=== PATIENT | female | born 1930 | race Caucasian/White ===

== ENCOUNTER 2017-07-01 15:40 | Observation (INO) | payer OTHER, MEDICARE ==
[~2017-07-01] VITALS: Ht 152.4 cm; Wt 66.6 kg
--- NOTE | 2017-07-01 16:08 | EMERGENCY ROOM VISIT NOTE ---
History Report prepared by Deonna: Helder Robbins Under the Supervision of: Dr. Dina Ridley D.O. First contact with patient: 15:57 Chief Complaint: HYPERTENSION Stated Complaint: HIGH BLOOD PRESSURE History of Present Illness The patient is an 86 year old female who presents to the Emergency Room with persistent hypertension that was detected prior to arrival today. She says that she was in Dr. Curtis's office for a routine checkup, and her blood pressure was noted to be 220/[address] Curtis told the patient to come here for evaluation. The patient says that she has a history of hypertension, and takes Lisinopril daily. In the room here, her blood pressure is 253/78. She says that she has been feeling well recently, and nothing out of the ordinary has happened. She denies any dizziness, headaches, chest pain, shortness of breath, worsened vision, or numbness or tingling. She also notes no change in her diet or activity recently. She says that she has no history of heart or kidney issues , or a stroke. Source of History: patient, family Onset: Detected prior to arrival today Position: other (global - hypertension) Symptom Intensity: 253/78 Timing: other (persistent) Associated Symptoms: No headache, No chest pain, No SOB, No numbness (or tingling) Note: Associated symptoms: Denies dizziness, worsened vision. Enloe fine past few days. Review of Systems See HPI for pertinent positives & negatives. A total of 10 systems reviewed and were otherwise negative. Past Medical & Surgical Medical Problems: (1) HTN (hypertension) (2) Hypertensive urgency Family History Family history omitted secondary to patient's advanced age. Social History Smoking Status: Former Smoker Marital Status: Housing Status: lives with family Occupation Status: retired Current/Historical Medications Scheduled Amlodipine (Norvasc), 2.5 MG PO DAILY Aspirin (Aspirin Ec), 81 MG PO DAILY Calcium (Calcium), 500 MG PO DAILY Carvedilol (Coreg), 12.5 MG PO BID Cholecalciferol (Vitamin D3), 2,000 INTER.UNIT PO DAILY Furosemide (Lasix), 20 MG PO DAILY Lisinopril (Zestril), 40 MG PO DAILY Potassium Gluconate (Potassium Gluconate), 1 TAB PO DAILY Ranitidine (Zantac), 150 MG PO HS Triamcinolone Acet (Aristocort 0.1%), 1 APPL TOP BID Scheduled PRN Acetaminophen (Tylenol Extra Strength), 1-2 TABS PO Q8 PRN for Pain Ibuprofen Tab (Advil), 200 MG PO DAILY PRN for Pain Allergies Coded Allergies: Flu Virus Vaccine (Unverified Allergy, Unknown, UNKNOWN, 07/01/17) Iodine (Unverified Allergy, Unknown, UNKNOWN, 07/01/17) Physical Exam Vital Signs Date Time Temp Pulse Resp B/P (MAP) Pulse Ox O2 Delivery O2 Flow Rate FiO2 07/01/17 20:16 53 19 127/57 99 Room Air 07/01/17 20:13 55 07/01/17 20:02 56 23 118/57 99 Room Air 07/01/17 19:46 59 24 119/55 98 Room Air 07/01/17 19:31 64 19 119/73 98 Room Air 07/01/17 19:16 58 24 159/58 98 Room Air 07/01/17 19:01 53 15 186/89 99 Room Air 07/01/17 18:45 54 22 217/79 98 Room Air 07/01/17 18:25 52 18 199/92 98 Room Air 07/01/17 16:46 45 18 259/87 98 Room Air 07/01/17 16:09 46 07/01/17 15:55 98 Room Air 07/01/17 15:42 36.5 52 16 247/79 98 Room Air Physical Exam GENERAL: alert, well appearing, well nourished, no distress, non-toxic EYE EXAM: normal conjunctiva, PERRL and EOM's grossly intact OROPHARYNX: no exudate, no erythema, lips, buccal mucosa, and tongue normal and mucous membranes are moist NECK: supple, no nuchal rigidity, no adenopathy, non-tender LUNGS: Clear to auscultation. Normal chest wall mechanics HEART: no murmurs, S1 normal and S2 normal ABDOMEN: abdomen soft, non-tender, normo-active bowel sounds, no masses, no rebound or guarding. BACK: Back is symmetrical on inspection and there is no deformity, no midline tenderness, no CVA tenderness. SKIN: no rashes and no bruising UPPER EXTREMITIES: upper extremities are grossly normal. LOWER EXTREMITIES: Trace pedal edema. NEURO EXAM: Normal sensorium, cranial nerves II-XII grossly intact, normal speech, no gross weakness of arms, no gross weakness of legs. Medical Decision & Procedures ER Provider Diagnostic Interpretation: X-ray results have been interpreted by the radiologist and reviewed by me. CHEST ONE VIEW PORTABLE HISTORY: 86 years-old Female hypertension COMPARISON: None available TECHNIQUE: Portable upright AP view of the chest FINDINGS: Cardiac silhouette is moderately enlarged. Atherosclerosis of the aorta. No pneumothorax, pleural effusion, focal airspace consolidation or overt pulmonary edema. Minimal ill-defined subsegmental opacities of the lateral lung bases suggest areas of atelectasis or scarring. The bones are grossly intact. IMPRESSION: Cardiomegaly without acute cardiopulmonary process. The above report was generated using voice recognition software. It may contain grammatical, syntax or spelling errors. Electronically signed by: Ruben Del Toro M.D. 07/01/2017 4:41 PM Dictated Date/Time: 07/01/2017 4:40 PM Laboratory Results 07/01/17 16:45 Red Blood Count 4.09, Mean Corpuscular Volume 94.6, Mean Corpuscular Hemoglobin 32.5, Mean Corpuscular Hemoglobin Concent 34.4, Mean Platelet Volume 11.5, Neutrophils (%) (Auto) 43.5, Lymphocytes (%) (Auto) 37.0, Monocytes (%) (Auto) 11.9, Eosinophils (%) (Auto) 6.7, Basophils (%) (Auto) 0.7, Neutrophils # (Auto ) 2.46, Lymphocytes # (Auto) 2.09, Monocytes # (Auto) 0.67, Eosinophils # (Auto ) 0.38, Basophils # (Auto) 0.04 Test 07/01/17 15:57 07/01/17 16:45 07/01/17 18:08 Troponin I 0.034 ng/ml (0-0.045) Pro-B-Type Natriuretic Peptide 1195 pg/ml (0-1800) Thyroid Stimulating Hormone (TSH) 3.500 uIu/ml (0.300-4.500) White Blood Count 5.65 K/uL (4.8-10.8) Red Blood Count 4.09 M/uL (4.2-5.4) Hemoglobin 13.3 g/dL (12.0-16.0) Hematocrit 38.7 % (37-47) Mean Corpuscular Volume 94.6 fL (80-100) Mean Corpuscular Hemoglobin 32.5 pg (25-34) Mean Corpuscular Hemoglobin Concent 34.4 g/dl (32-36) Platelet Count 142 K/uL (130-400) Mean Platelet Volume 11.5 fL (7.4-10.4) Neutrophils (%) (Auto) 43.5 % Lymphocytes (%) (Auto) 37.0 % Monocytes (%) (Auto) 11.9 % Eosinophils (%) (Auto) 6.7 % Basophils (%) (Auto) 0.7 % Neutrophils # (Auto) 2.46 K/uL (1.4-6.5) Lymphocytes # (Auto) 2.09 K/uL (1.2-3.4) Monocytes # (Auto) 0.67 K/uL (0.11-0.59) Eosinophils # (Auto) 0.38 K/uL (0-0.5) Basophils # (Auto) 0.04 K/uL (0-0.2) RDW Standard Deviation 45.9 fL (36.4-46.3) RDW Coefficient of Variation 13.2 % (11.5-14.5) Immature Granulocyte % (Auto) 0.2 % Immature Granulocyte # (Auto) 0.01 K/uL (0.00-0.02) Urine Color YELLOW Urine Appearance CLEAR (CLEAR) Urine pH 7.0 (4.5-7.5) Urine Specific [place] 1.012 (1.000-1.030) Urine Protein NEG (NEG) Urine Glucose (UA) NEG (NEG) Urine Ketones NEG (NEG) Urine Occult Blood TRACE (NEG) Urine Nitrite NEG (NEG) Urine Bilirubin NEG (NEG) Urine Urobilinogen NEG (NEG) Urine Leukocyte Esterase MODERATE (NEG) Urine WBC (Auto) 10-30 /hpf (0-5) Urine RBC (Auto) 0-4 /hpf (0-4) Urine Hyaline Casts (Auto) 0 /lpf (0-5) Urine Epithelial Cells (Auto) 10-20 /lpf (0-5) Urine Bacteria (Auto) 2+ (NEG) Magnesium Level 2.3 mg/dl (1.8-2.4) Date/Time Source Procedure Growth Status 07/01/17 16:45 Urine , Clean Catch Urine Culture - Final Escherichia Coli Complete Laboratory results per my review. Medications Administered Medications (Trade) Dose Ordered Sig/Keysha Route Start Time Stop Time Status Last Admin Dose Admin Amlodipine Besylate (Norvasc Tab) 5 mg NOW ONCE PO 07/01/17 17:00 07/01/17 17:01 DC 07/01/17 17:17 5 MG Hydralazine HCl (HydrALAZINE INJ) 5 mg NOW STAT IV. 07/01/17 18:06 07/01/17 18:20 DC 07/01/17 18:25 5 MG Hydralazine HCl (HydrALAZINE INJ) 10 mg NOW STAT IV. 07/01/17 18:50 07/01/17 18:51 DC 07/01/17 19:01 10 MG Ceftriaxone Sodium (Rocephin Inj) 1 gm NOW STAT IV 07/01/17 18:56 07/01/17 18:57 DC 07/01/17 19:01 1 GM ECG Indication: other (hypertension) Rate (beats per minute): 52 Rhythm: sinus bradycardia Findings: no acute ischemic change, no ectopy, other (normal axis, normal intervals) Comparison ECG Date: no prior available ED Course 1558: The patient was evaluated in room C4. A complete history and physical exam was performed. 1615: Case management was able to obtain medical records from Dr. Curtis's office. The patient's elevated blood pressure in office was confirmed. The medication list from the office is different from the one the patient presents today. 1641: I reevaluated the patient, and reviewed the PCP medication list with the patient. 1700: Ordered Norvasc Tab 5 mg PO. 1806: Ordered Hydralazine Inj 5 mg IV. 1845: Upon reevaluation, the patient is feeling fine with no symptoms, but her systolic blood pressure was 217. I discussed the findings and the treatment plan with the patient. She expresses agreement and understanding. She will be evaluated for further management. 1850: Ordered Hydralazine Inj 10 mg IV. 1856: Ordered Rocephin Inj 1 gm IV. 1925: I reviewed the patient's case with Samanta Jean. She will evaluate the patient for further management. Medical Decision Differential diagnosis: Etiologies such as benign hypertension, hypertensive emergency, cardiovascular pathology, pheochromocytoma, electrolyte abnormality, renal disease, endorgan damage, as well as others were entertained. Pt with hx of htn and asymptomatic here. Sent in due to accelerated htn given readings in the office. No improvement here and pt denied missing any doses or any changes. Per conversation, pt not entirely adherent to a heart healthy diet. After two doses of meds here, pt SBP finally less than 200. No evidence of end organ damage. No neuro findings to suggest ich/cva. Doubt dissection, acs, chf. Pt admitted for additional BP control. Medication Reconcilliation Current Medication List: was personally reviewed by me Blood Pressure Screening Patient's blood pressure: Elevated blood pressure Referred to hospitalist. Consults Time Called: 1909 Consulting Physician: Samanta Jean Returned Call: 1924 I reviewed the patient's case with Samanta Jean. She will evaluate the patient for further management. Impression Primary Impression: Uncontrolled hypertension Scribe Attestation The scribe's documentation has been prepared under my direction and personally reviewed by me in its entirety. I confirm that the note above accurately reflects all work, treatment, procedures, and medical decision making performed by me. Departure Information Dispostion Being Evaluated By Hospitalist Prescriptions Acetaminophen (Tylenol Extra Strength) 500 Mg Tab 1-2 TABS PO Q8 Y for Pain, #1 BTL No prescription necessary. Try before ibuprofen (Advil). Prov: Ab Good M.D. 07/02/17 Amlodipine (Norvasc) 2.5 Mg Tab 2.5 MG PO DAILY, #30 TAB 5 Refills Prov: Ab Good M.D. 07/02/17 Referrals No Doctor, Assigned (PCP) Patient Instructions My [facility]
[2017-07-01] MEDS ORDERED: ASPI81TA28 PO (16:34)
[2017-07-01] MEDS ORDERED: CALC500T83 PO (16:34)
[2017-07-01] MEDS ORDERED: CHOL2000 PO (16:34)
--- NOTE | 2017-07-01 16:42 | DIAGNOSTIC IMAGING REPORT ---
CHEST ONE VIEW PORTABLE HISTORY: 86 years-old Female hypertension COMPARISON: None available TECHNIQUE: Portable upright AP view of the chest FINDINGS: Cardiac silhouette is moderately enlarged. Atherosclerosis of the aorta. No pneumothorax, pleural effusion, focal airspace consolidation or overt pulmonary edema. Minimal ill-defined subsegmental opacities of the lateral lung bases suggest areas of atelectasis or scarring. The bones are grossly intact. IMPRESSION: Cardiomegaly without acute cardiopulmonary process. The above report was generated using voice recognition software. It may contain grammatical, syntax or spelling errors. Electronically signed by: Ruben Del Toro M.D. 07/01/2017 4:41 PM Dictated Date/Time: 07/01/2017 4:40 PM
[2017-07-01] MEDS ORDERED: CARV12.52 PO (16:55)
[2017-07-01] MEDS ORDERED: LISI40TA PO (16:55)
[2017-07-01 16:56] LABS: BASO % 0.7 %; BASO ABS # 0.04 K/uL (0-0.2); COMPLETE YES; EOS % 6.7 %; HEMATOCRIT 38.7 % (37-47); IG% 0.2 %; LYMPH ABS # 2.09 K/uL (1.2-3.4); MEAN CELL VOLUME 94.6 fL (80-100); MEAN CORPUSCULAR HEMOGLOBIN 32.5 pg (25-34); MEAN CORPUSCULAR HGB CONC 34.4 g/dl (32-36); MEAN PLATELET VOLUME 11.5 fL (7.4-10.4); MONO % 11.9 %; NEUT % 43.5 %; PLATELET COUNT 142 K/uL (130-400); RED BLOOD COUNT 4.09 M/uL (4.2-5.4); WHITE BLOOD COUNT 5.65 K/uL (4.8-10.8)
[2017-07-01 16:58] LABS: MANUAL MICROSCOPIC REQUIRED? NO; REVIEW REQ? NO; URINE APPEARANCE CLEAR (CLEAR); URINE BILIRUBIN NEG (NEG); URINE COLOR YELLOW; URINE NITRITE NEG (NEG); URINE SPECIFIC GRAVITY 1.012 (1.000-1.030); UROBILINOGEN NEG (NEG); ZZUR CULT IF INDIC CLEAN CATCH YES
[2017-07-01] MEDS ORDERED: AMLODIPINE BESYLATE 5 MG TAB PO ONE (17:00)
[2017-07-01 17:17] LABS: ALB/GLOB RATIO 0.9 (0.9-2); ALKALINE PHOSPHATASE 128 U/L (45-117); ALT/SGPT 64 U/L (12-78); BLOOD UREA NITROGEN 9 mg/dl (7-18); BUN/CREATININE RATIO 12.2 (10-20); CALCIUM 9.1 mg/dl (8.5-10.1); CARBON DIOXIDE 27 mmol/L (21-32); CHLORIDE 106 mmol/L (98-107); CREATININE 0.74 mg/dl (0.60-1.20); GLUCOSE 93 mg/dl (70-99); SODIUM 140 mmol/L (136-145)
[2017-07-01] MEDS ORDERED: HydrALAZINE HCL 20 MG/ML VIAL IV. STA ×2 (18:06→18:50)
[2017-07-01 18:54] LABS: POTASSIUM 3.5 mmol/L (3.5-5.1)
[2017-07-01] MEDS ORDERED: CEFTRIAXONE SOD INJ 1 GM ADDVIAL IV STA (18:56)
[2017-07-01 19:00] LABS: MAGNESIUM 2.3 mg/dl (1.8-2.4)
[2017-07-01 21:45] VITALS: BP 162/67; PULSE 58; TEMP 36.4; O2SAT 97
--- NOTE | 2017-07-01 21:47 | History and Physical ---
History & Physical Date & Time of Service: Jul 01, 2017 at 21:47 Chief Complaint: Hypertensive Urgency Primary Care Physician: Clara Curtis M.D. (MEDICAL) History of Present Illness Source: patient, family, clinic records, hospital records 86 year old female with PMH of HTN, dyslipidemia, diastolic heart failure was sent to the Emergency Room with persistent hypertension. Pt was at her PCP office today for routine check up. BP at the office was 220/80. Dr. Curtis her PCP sent her to the ER for eval. Pt lives alone and very active. Her 2 daughters at bedside. one of the daughter said that she usually goes to pt place to check the BP., and BP has been running consistent in the 180 systolic as per daughter for the last few months. Pt said that she has been taking her BP meds daily and she has been watching her salt intake. she said that she has been feeling fine. In the ER BP was 253/78. She denies any dizziness, headaches , chest pain, shortness of breath, palpitation, worsened vision, numbness or tingling. Denies any urinary symptoms. Received Hydralazine 15 mg IV and Norvasc 5 mg and rocephin in the ER. Currently her BP 119/55. Past Medical/Surgical History Medical Problems: (1) HTN (hypertension) Status: Chronic Social History Smoking Status: Former Smoker Marital Status: Occupational Status: retired Multi-Drug Resistant Organisms History of MDRO: No Allergies Coded Allergies: Flu Virus Vaccine (Unverified Allergy, Unknown, UNKNOWN, 07/01/17) Iodine (Unverified Allergy, Unknown, UNKNOWN, 07/01/17) Home Medications Scheduled Aspirin (Aspirin Ec), 81 MG PO DAILY Calcium (Calcium), 500 MG PO DAILY Carvedilol (Coreg), 12.5 MG PO BID Cholecalciferol (Vitamin D3), 2,000 INTER.UNIT PO DAILY Furosemide (Lasix), 20 MG PO DAILY Lisinopril (Zestril), 40 MG PO DAILY Potassium Gluconate (Potassium Gluconate), 1 TAB PO DAILY Ranitidine (Zantac), 150 MG PO HS Triamcinolone Acet (Aristocort 0.1%), 1 APPL TOP BID Miscellaneous Medications Ibuprofen Tab (Advil), 200 MG PO Review of Systems Constitutional: No fever, No chills, No weakness Eyes: No worsening of vision, No eye pain ENT: No unusual epistaxis, No sore throat Respiratory: No cough, No sputum, No shortness of breath, No dyspnea on exertion Cardiovascular: No chest pain, No claudication, No palpitations Abdomen: No pain, No nausea, No vomiting Musculoskeletal: No swelling, No calf pain Genitourinary - Female: No dysuria, No urinary frequency Neurologic: No memory loss, No paralysis, No weakness Psychiatric: No anxiety, No substance abuse Hematologic / Lymphatic: No abnormal bleeding/bruising Integumentary: No rash, No itch Physical Exam Vital Signs Date Time Temp Pulse Resp B/P (MAP) Pulse Ox O2 Delivery O2 Flow Rate FiO2 07/01/17 21:45 36.4 58 20 162/67 (98) 97 Room Air 07/01/17 21:13 55 24 126/48 99 07/01/17 21:02 55 24 126/48 99 Room Air 07/01/17 20:39 53 22 104/62 98 Room Air 07/01/17 20:16 53 19 127/57 99 Room Air 07/01/17 20:13 55 07/01/17 20:02 56 23 118/57 99 Room Air 07/01/17 19:46 59 24 119/55 98 Room Air 07/01/17 19:31 64 19 119/73 98 Room Air 07/01/17 19:16 58 24 159/58 98 Room Air 07/01/17 19:01 53 15 186/89 99 Room Air 07/01/17 18:45 54 22 217/79 98 Room Air 07/01/17 18:25 52 18 199/92 98 Room Air 07/01/17 16:46 45 18 259/87 98 Room Air 07/01/17 16:09 46 07/01/17 15:55 98 Room Air 07/01/17 15:42 36.5 52 16 247/79 98 Room Air General Appearance: WD/WN, no apparent distress Head: normocephalic, atraumatic Eyes: normal inspection, PERRL, EOMI ENT: hearing grossly normal Neck: supple, no JVD, trachea midline Respiratory/Chest: lungs clear, normal breath sounds, no respiratory distress, no accessory muscle use Cardiovascular: no JVD, + bradycardia Abdomen/GI: normal bowel sounds, soft Back: no CVA tenderness Extremities/Musculoskelatal: no calf tenderness Neurologic/Psych: no motor/sensory deficits, alert, normal mood/affect, oriented x 3 Skin: normal color, warm/dry Diagnostics Laboratory Results Results Past 24 Hours Test 07/01/17 15:57 07/01/17 16:45 07/01/17 18:08 Range/Units Sodium Level 140 136-145 mmol/L Potassium Level 3.5 3.5-5.1 mmol/L Chloride Level 106 98-107 mmol/L Carbon Dioxide Level 27 21-32 mmol/L Anion Gap 7.0 3-11 mmol/L Blood Urea Nitrogen 9 7-18 mg/dl Creatinine 0.74 0.60-1.20 mg/dl Est Creatinine Clear Calc Drug Dose 46.9 ml/min Estimated GFR () 85.6 Estimated GFR (Non- 73.9 BUN/Creatinine Ratio 12.2 10-20 Random Glucose 93 70-99 mg/dl Calcium Level 9.1 8.5-10.1 mg/dl Magnesium Level 2.3 1.8-2.4 mg/dl Total Bilirubin 0.5 0.2-1 mg/dl Aspartate Amino Transf (AST/SGOT) 70 15-37 U/L Alanine Aminotransferase (ALT/SGPT) 64 12-78 U/L Alkaline Phosphatase 128 45-117 U/L Troponin I 0.034 0-0.045 ng/ml Pro-B-Type Natriuretic Peptide 1195 0-1800 pg/ml Total Protein 8.0 6.4-8.2 gm/dl Albumin 3.7 3.4-5.0 gm/dl Globulin 4.3 2.5-4.0 gm/dl Albumin/Globulin Ratio 0.9 0.9-2 Thyroid Stimulating Hormone (TSH) 3.500 0.300-4.500 uIu/ml White Blood Count 5.65 4.8-10.8 K/uL Red Blood Count 4.09 4.2-5.4 M/uL Hemoglobin 13.3 12.0-16.0 g/dL Hematocrit 38.7 37-47 % Mean Corpuscular Volume 94.6 80-100 fL Mean Corpuscular Hemoglobin 32.5 25-34 pg Mean Corpuscular Hemoglobin Concent 34.4 32-36 g/dl Platelet Count 142 130-400 K/uL Mean Platelet Volume 11.5 7.4-10.4 fL Neutrophils (%) (Auto) 43.5 % Lymphocytes (%) (Auto) 37.0 % Monocytes (%) (Auto) 11.9 % Eosinophils (%) (Auto) 6.7 % Basophils (%) (Auto) 0.7 % Neutrophils # (Auto) 2.46 1.4-6.5 K/uL Lymphocytes # (Auto) 2.09 1.2-3.4 K/uL Monocytes # (Auto) 0.67 0.11-0.59 K/uL Eosinophils # (Auto) 0.38 0-0.5 K/uL Basophils # (Auto) 0.04 0-0.2 K/uL RDW Standard Deviation 45.9 36.4-46.3 fL RDW Coefficient of Variation 13.2 11.5-14.5 % Immature Granulocyte % (Auto) 0.2 % Immature Granulocyte # (Auto) 0.01 0.00-0.02 K/uL Urine Color YELLOW Urine Appearance CLEAR CLEAR Urine pH 7.0 4.5-7.5 Urine Specific [place] 1.012 1.000-1.030 Urine Protein NEG NEG Urine Glucose (UA) NEG NEG Urine Ketones NEG NEG Urine Occult Blood TRACE NEG Urine Nitrite NEG NEG Urine Bilirubin NEG NEG Urine Urobilinogen NEG NEG Urine Leukocyte Esterase MODERATE NEG Urine WBC (Auto) 10-30 0-5 /hpf Urine RBC (Auto) 0-4 0-4 /hpf Urine Hyaline Casts (Auto) 0 0-5 /lpf Urine Epithelial Cells (Auto) 10-20 0-5 /lpf Urine Bacteria (Auto) 2+ NEG Microbiology Results 07/01/17 Urine Culture, Received Pending Diagnostic Radiology CHEST ONE VIEW PORTABLE HISTORY: 86 years-old Female hypertension COMPARISON: None available TECHNIQUE: Portable upright AP view of the chest FINDINGS: Cardiac silhouette is moderately enlarged. Atherosclerosis of the aorta. No pneumothorax, pleural effusion, focal airspace consolidation or overt pulmonary edema. Minimal ill-defined subsegmental opacities of the lateral lung bases suggest areas of atelectasis or scarring. The bones are grossly intact. IMPRESSION: Cardiomegaly without acute cardiopulmonary process. The above report was generated using voice recognition software. It may contain grammatical, syntax or spelling errors. Electronically signed by: Ruben Del Toro M.D. 07/01/2017 4:41 PM Dictated Date/Time: 07/01/2017 4:40 PM Impression Assessment and Plan Hypertensive Urgency BP on admission was 247/79 Received [id number] mg IV and Norvasc 5 mg in the ER BP improved Continue lisinorpril 40mg daily and lasix 20mg daily will add amlodine 5 mg daily On cavedilol 12.5 mg BID will monitor HR Continue monitor BP continue monitor in telemetry Abnormal UA urine positive for leukocytes and bacteria Asymptomatic, afebrile, no leukocytosis Received Rocephin 1g urine cx pending will continue rocephin for now and d/c if urine cx shows no growth Diastolic Heart failure No signs of overload CXR showed Cardiomegaly without acute cardiopulmonary process. Continue lasix 20mg and coreg DVT px on heparin subq CODE STATUS FULL CODE Level of Care Telemetry Resuscitation Status FULL RESUSCITATION VTE Prophylaxis VTE Risk Assessment Done? Y/N: Yes Risk Level: Moderate Given or contraindicated: Unfractionated heparin SQ
[2017-07-01 21:58] VITALS: BP 162/67; PULSE 58; TEMP 36.4; Ht 152.4 cm; Wt 66.6 kg
[2017-07-01] MEDS ORDERED: PNEUMOCOCCAL POLYSACCHARIDES 25 MCG/0.5 ML VIAL/SYR IM. ONE (22:30)
[2017-07-01] MEDS ORDERED: PNEUMOCOCCAL ADMINISTRATION CHARGE ONE (22:30)
[2017-07-02] VITALS (8 sets, daily range): BP systolic 150–191; BP diastolic 63–77; PULSE 56–64; TEMP 36.8; O2SAT 94–98
[2017-07-02] MEDS ORDERED: FURO-85 PO (00:07)
[2017-07-02] MEDS ORDERED: POTA1TAB PO (00:07)
[2017-07-02] MEDS ORDERED: TRMCR130WC TOP (00:07)
[2017-07-02] MEDS ORDERED: ZNTT/150 PO (00:07)
[2017-07-02] MEDS ORDERED: IBUP-103 PO (00:07)
[2017-07-02] MEDS ORDERED: HydrALAZINE HCL 20 MG/ML VIAL IV. PRN (00:15)
[2017-07-02 06:42] LABS: INR 1.1 (0.9-1.1); PROTHROMBIN TIME (PATIENT) 11.7 SECONDS (9.0-12.0)
[2017-07-02 07:01] LABS: CALCIUM 8.3 mg/dl (8.5-10.1); CREATININE 0.61 mg/dl (0.60-1.20); POTASSIUM 3.5 mmol/L (3.5-5.1)
[2017-07-02 07:04] LABS: ALB/GLOB RATIO 0.8 (0.9-2)
[2017-07-02] MEDS ORDERED: CARVEDILOL 12.5 MG TAB PO SCH (09:00)
[2017-07-02] MEDS ORDERED: FUROSEMIDE 20 MG TAB PO SCH (09:00)
[2017-07-02] MEDS ORDERED: CHOLECALCIFEROL 1000 INTER.UNIT TAB PO SCH (09:00)
[2017-07-02] MEDS ORDERED: HEPARIN SOD 5000 UNIT/0.5 ML CARP SQ SCH (09:00)
[2017-07-02] MEDS ORDERED: LISINOPRIL 40 MG TAB PO SCH (09:00)
[2017-07-02] MEDS ORDERED: ASPIRIN 81 MG ECTAB PO SCH (09:00)
[2017-07-02] MEDS ORDERED: CALCIUM 600MG + VIT D 400 IU TAB PO SCH (09:00)
[2017-07-02] MEDS ORDERED: AMLODIPINE BESYLATE 5 MG TAB PO SCH (09:00)
[2017-07-02] MEDS ORDERED: AMLO2.5T PO (15:46)
[2017-07-02] MEDS ORDERED: ACET-1138 PO (15:46)
--- NOTE | 2017-07-02 15:52 | Discharge Instructions ---
Discharge Instructions Date of Service Jul 02, 2017. Admission Reason for Admission: high blood pressure . Discharge Discharge Diagnosis / Problem: high blood pressure Discharge Goals Goal(s): Improve disease control Activity Recommendations Activity Limitations: resume your previous activity . Instructions / Follow-Up Instructions / Follow-Up APPOINTMENTS: FAMILY MEDICINE 07/05/2017 2:20 PM Clara Curtis MD OTHER INSTRUCTIONS: Your blood pressure was running high, but improved. Continue your usual blood pressure medicines. New blood pressure medicine: amlodipine (Norvasc) 2.5 mg each morning. Ibuprofen (Advil) can increase your blood pressure. Try not to take it more than once a day, and only if necessary. Acetaminophen (Extra Strength Tylenol) will not affect your blood pressure. May take 1 or 2 pills every 8 hours as needed for arthritis pain. You had some bacteria in your urine, but it does not seem like you have a bladder or kidney infection. No need for antibiotics at this time. Seek medical attention if you have: * temperature above 101 * chest pain or trouble breathing * abdominal pain, nausea, vomiting * diarrhea, dark stools or bloody stools * burning when you urinate or blood in your urine * any unanswered questions or concerns Call 911 if symptoms are severe. Call if you have any questions or problems. My cell # is [phone]. You can also reach a [facility] hospitalist on duty at [facility] 24 hours a day by calling [phone]. Please take good care of yourself. Ab Good . Current Hospital Diet Patient's current hospital diet: AHA Diet (Heart Healthy), Low Sodium Diet (2gm Na) Discharge Diet Recommended Diet: AHA Diet (Heart Healthy) Pending Studies Studies pending at discharge: no Medical Emergencies . Who to Call and When: Medical Emergencies: If at any time you feel your situation is an emergency, please call 911 immediately. . Non-Emergent Contact Non-Emergency issues call your: Primary Care Provider, Hospital Doctor . . "Provider Documentation" section prepared by Ab Good. . VTE Core Measure Inpt VTE Proph given/why not?: Unfractionated heparin SQ
[2017-07-02] MEDS ORDERED: CEFTRIAXONE SOD INJ 1 GM in DEXTROSE 5% ADD-VANTAGE 50ML 50 ML IV SCH (18:00)
--- NOTE | 2017-07-02 19:29 | Progress Note ---
Medicine Progress Note Date & Time of Visit: Jul 02, 2017 at ~ 15:30 . Subjective Feels well. No CP. No SOB. No N/V. No headache. . Objective Last 8 Hrs Date Time Temp Pulse Resp B/P (MAP) Pulse Ox O2 Delivery O2 Flow Rate FiO2 07/02/17 15:57 36.8 64 18 95 Room Air 07/02/17 15:52 64 18 191/68 (109) 95 Room Air 07/02/17 12:48 58 150/77 (101) 07/02/17 12:00 95 Room Air 07/02/17 11:40 36.8 56 17 176/70 (105) 94 Room Air Physical Exam: General- no distress Neck- no JVD Lungs- clear Heart- RRR, S4 Abdomen- + BS, soft, nontender Extremities- no pretibial edema or calf tenderness Neuro- alert . Laboratory Results: Last 24 Hours Test 07/02/17 05:56 Prothrombin Time 11.7 SECONDS Prothromb Time International Ratio 1.1 Sodium Level 139 mmol/L Potassium Level 3.5 mmol/L Chloride Level 108 mmol/L Carbon Dioxide Level 24 mmol/L Anion Gap 7.0 mmol/L Blood Urea Nitrogen 12 mg/dl Creatinine 0.61 mg/dl Est Creatinine Clear Calc Drug Dose 57.4 ml/min Estimated GFR () 95.8 Estimated GFR (Non- 82.7 BUN/Creatinine Ratio 19.0 Random Glucose 92 mg/dl Calcium Level 8.3 mg/dl Total Bilirubin 0.5 mg/dl Aspartate Amino Transf (AST/SGOT) 59 U/L Alanine Aminotransferase (ALT/SGPT) 51 U/L Alkaline Phosphatase 103 U/L Total Protein 6.9 gm/dl Albumin 3.1 gm/dl Globulin 3.8 gm/dl Albumin/Globulin Ratio 0.8 Assessment & Plan HYPERTENSIVE URGENCY Labile hypertension. Systolic BP as high as 217. Carvedilol and lisinopril continued. Amlodipine 2.5 mg daily added to regimen with improvement. Advised to avoid NSAID's if possible. Follow and titrate Rx. VTE PROPHYLAXIS SQ heparin. DISPOSITION Expected discharge to home. Family Medicine follow-up with Dr. Curtis. .
--- NOTE | 2017-07-02 19:30 | Discharge Summary ---
Discharge Summary Date of Service Jul 02, 2017. Discharge Summary Admission Date: Jul 01, 2017 at 20:34 Discharge Date: Jul 02, 2017 Discharge Disposition: Home Principal Diagnosis: hypertensive urgency . Secondary Diagnoses/Problems: Chronic Medical Problems: (1) HTN (hypertension) Status: Chronic . Medication Reconciliation New Medications: Acetaminophen (Tylenol Extra Strength) 500 Mg Tab 1-2 TABS PO Q8 PRN for Pain, #1 BTL No prescription necessary. Try before ibuprofen (Advil). Amlodipine (Norvasc) 2.5 Mg Tab 2.5 MG PO DAILY, #30 TAB 5 Refills Continued Medications: Aspirin (Aspirin Ec) 81 Mg Tab 81 MG PO DAILY Calcium (Calcium) 500 Mg Tab 500 MG PO DAILY Carvedilol (Coreg) 12.5 Mg Tab 12.5 MG PO BID, TAB Cholecalciferol (Vitamin D3) 2,000 Unit Cap 2000 INTER.UNIT PO DAILY, CAP 3 Refills Furosemide (Lasix) 20 Mg Tab 20 MG PO DAILY, TAB Ibuprofen Tab (Advil) 200 Mg Tab 200 MG PO DAILY PRN for Pain, TAB Lisinopril (Zestril) 40 Mg Tab 40 MG PO DAILY, TAB Potassium Gluconate (Potassium Gluconate) 595 Mg Tab 1 TAB PO DAILY Ranitidine (Zantac) 150 Mg Tab 150 MG PO HS, TAB Triamcinolone Acet (Aristocort 0.1%) 90 Appln/30 Gm Cr 1 APPL TOP BID Admission Information HPI (per Admitting provider): 86 year old female with PMH of HTN, dyslipidemia, diastolic heart failure was sent to the Emergency Room with persistent hypertension. Pt was at her PCP office today for routine check up. BP at the office was 220/80. Dr. Curtis her PCP sent her to the ER for eval. Pt lives alone and very active. Her 2 daughters at bedside. one of the daughter said that she usually goes to pt place to check the BP., and BP has been running consistent in the 180 systolic as per daughter for the last few months. Pt said that she has been taking her BP meds daily and she has been watching her salt intake. she said that she has been feeling fine. In the ER BP was 253/78. She denies any dizziness, headaches , chest pain, shortness of breath, palpitation, worsened vision, numbness or tingling. Denies any urinary symptoms. Received Hydralazine 15 mg IV and Norvasc 5 mg and rocephin in the ER. Currently her BP 119/55. Physical Exam (per Admitting): General Appearance: WD/WN, no apparent distress Head: normocephalic, atraumatic Eyes: normal inspection, PERRL, EOMI ENT: hearing grossly normal Neck: supple, no JVD, trachea midline Respiratory/Chest: lungs clear, normal breath sounds, no respiratory distress, no accessory muscle use Cardiovascular: no JVD, + bradycardia Abdomen/GI: normal bowel sounds, soft Back: no CVA tenderness Extremities/Musculoskelatal: no calf tenderness Neurologic/Psych: no motor/sensory deficits, alert, normal mood/affect, oriented x 3 Skin: normal color, warm/dry Hospital Course HYPERTENSIVE URGENCY Labile hypertension. Systolic BP as high as 217. Carvedilol and lisinopril continued. Amlodipine 2.5 mg daily added to regimen with improvement. Advised to avoid NSAID's if possible. Follow and titrate Rx. VTE PROPHYLAXIS SQ heparin. DISPOSITION Expected discharge to home. Family Medicine follow-up with Dr. Curtis. . Discharge Instructions Date of Service Jul 02, 2017. Admission Reason for Admission: high blood pressure . Discharge Discharge Diagnosis / Problem: high blood pressure Discharge Goals Goal(s): Improve disease control Activity Recommendations Activity Limitations: resume your previous activity . Instructions / Follow-Up Instructions / Follow-Up APPOINTMENTS: FAMILY MEDICINE 07/05/2017 2:20 PM Clara Curtis MD OTHER INSTRUCTIONS: Your blood pressure was running high, but improved. Continue your usual blood pressure medicines. New blood pressure medicine: amlodipine (Norvasc) 2.5 mg each morning. Ibuprofen (Advil) can increase your blood pressure. Try not to take it more than once a day, and only if necessary. Acetaminophen (Extra Strength Tylenol) will not affect your blood pressure. May take 1 or 2 pills every 8 hours as needed for arthritis pain. You had some bacteria in your urine, but it does not seem like you have a bladder or kidney infection. No need for antibiotics at this time. Seek medical attention if you have: * temperature above 101 * chest pain or trouble breathing * abdominal pain, nausea, vomiting * diarrhea, dark stools or bloody stools * burning when you urinate or blood in your urine * any unanswered questions or concerns Call 911 if symptoms are severe. Call if you have any questions or problems. My cell # is [phone]. You can also reach a [facility] hospitalist on duty at [facility] 24 hours a day by calling [phone]. Please take good care of yourself. Ab Good . Current Hospital Diet Patient's current hospital diet: AHA Diet (Heart Healthy), Low Sodium Diet (2gm Na) Discharge Diet Recommended Diet: AHA Diet (Heart Healthy) Pending Studies Studies pending at discharge: no Medical Emergencies . Who to Call and When: Medical Emergencies: If at any time you feel your situation is an emergency, please call 911 immediately. . Non-Emergent Contact Non-Emergency issues call your: Primary Care Provider, Hospital Doctor . . "Provider Documentation" section prepared by Ab Good. . VTE Core Measure Inpt VTE Proph given/why not?: Unfractionated heparin SQ .
[2017-07-02] MEDS ORDERED: RANITIDINE HCL 150 MG TAB PO SCH (21:00)
== END 2017-07-02 16:48 | disposition home or self-care (01) ==
LOC: C.EDB 15:41 → C.MED 20:34 → ENRESERV 20:53
PROVIDERS: ADMIT Internal Medicine; ATTEND Hospitalist
DX: I16.0 Hypertensive urgency (principal); Z79.82 Long term (current) use of aspirin; E78.5 Hyperlipidemia, unspecified; I50.40 Unspecified combined systolic (congestive) and diastolic (congestive) heart failure; Z87.891 Personal history of nicotine dependence